=== PATIENT | male | born 1990 | race Caucasian/White ===

== ENCOUNTER 2021-05-05 13:31 | Observation (INO) | payer BC ==
[~2021-05-05] VITALS: Ht 180.3 cm; Wt 70.0 kg
--- NOTE | 2021-05-05 13:31 | NUR ---
PATIENT TO ROOM VIA WHEELCHAIR AND PHYSICIAN NOTIFIED OF PATIENT STATUS
--- NOTE | 2021-05-05 14:20 | NUR ---
PATIENT HAS DECREASED VOMITING. PATIENT RESTING AWAITNG LAB RESULT. MD NOTIFIED OF PATIENT STATUS
[2021-05-05 14:23] LABS: HEMATOCRIT 42.4 % (39.0-50.0); HEMOGLOBIN 14.9 g/dl (14.0-18.0); IMMATURE GRANULOCYTES 0.7 % (0.0-5.0); MEAN CELL VOLUME 89.5 fL CALC (80.0-100.0); MEAN CORPUSCULAR HGB 31.4 pG CALC (26.0-32.0); MEAN CORPUSCULAR HGB CONC 35.1 g/dL CAL (32.0-36.0); NEUT# 12.15 thou/uL (1.82-7.42); RED BLOOD COUNT 4.74 mill/uL (4.70-6.10); RED CELL DISTRI WIDTH 11.5 % (11.5-15.5)
[2021-05-05 14:31] LABS: ALBUMIN 4.9 g/dL (3.2-5.0); ALKALINE PHOSPHATASE 89 u/l (38-126); ANION GAP 15 (6-22 (CALC)); BILIRUBIN, TOTAL 0.9 mg/dL (0.0-1.4); BUN 18 mg/dL (9-20); BUN/CREATININE RATIO 13 (12-20 (CALC)); CARBON DIOXIDE 29 mmol/l (22-30); CHLORIDE 94 mmol/l (95-108); CREATININE 1.4 mg/dL (0.7-1.3); GFR 59 ML/MIN (>=60 (CALC)); GFR FOR AFR.AMER. > 60 ML/MIN (>=60 (CALC)); POTASSIUM 4.2 mmol/l (3.5-5.1); SGOT/AST 29 u/l (17-59); SODIUM 134 mmol/l (137-146); TOTAL PROTEIN 8.6 g/dL (6.3-8.2)
--- NOTE | 2021-05-05 15:10 | NUR ---
REPORT GIVEN TO RHONDA CYNDY
--- NOTE | 2021-05-05 16:09 | NUR ---
CHARGE NURSE SPEAKING WITH PTS MOTHER, PT GAVE VERBAL CONSENT.
--- NOTE | 2021-05-05 17:05 | NUR ---
NOW AT BEDSIDE. IV FLUIDS CONTINUING TO INFUSE WITHOUT DIFFICULTY.
[2021-05-05 17:13] LABS: URINE BILIRUBIN - DIPSTICK NEGATIVE (NEGATIVE); URINE BLOOD DIPSTICK SMALL (NEGATIVE); URINE COLOR YELLOW; URINE GLUCOSE - DIPSTICK >=1000 mg/dL (NEGATIVE); URINE KETONE NEGATIVE (NEGATIVE); URINE LEUK ESTERASE NEGATIVE (NEGATIVE); URINE PH 6.5 (4.5-8.0); URINE PROTEIN - DIPSTICK TRACE mg/dL (NEG-TRACE); URINE UROBILINOGEN - DIPSTICK 0.2 E.U./dL (0.2)
[2021-05-05 17:20] LABS: URINE NITRITE - DIPSTICK NEGATIVE (Negative); URINE WBC 0-2 WBC/hpf (0-5)
--- NOTE | 2021-05-05 17:30 | NUR ---
AT BEDSIDE WITH MD DISCUSSING PLAN OF CARE.
--- NOTE | 2021-05-05 18:26 | NUR ---
PT PENDING ADMISSION, MEDICATED, VOMITING IMPROVED AT THIS TIME. PT DENIES ANY CURRENT PAIN.
--- NOTE | 2021-05-05 19:03 | NUR ---
[facility]
[2021-05-05 19:20] VITALS: BP 91/58
--- NOTE | 2021-05-05 19:20 | NUR ---
PT ARRIVED TO MED SURG UNIT, APPEARS TO BE IN STABLE CONDITION AT THIS TIME. PT SELF AMBULATED TO THE BED FROM THE STRETCHER. PT DENIES NAUSEA AT THIS TIME. EMESIS BAG PROVIDED FOR PRECAUTIONARY MEASURES. ASSESSEMENT COMPLETED AT THIS TIME AND V/S ASSESSED. PT ORIENTED TO THE ROOM, LIGHTS, BED AND CALL SYSTEM. ACCU-CHECK OBTAINED ALSO AT THIS TIME, BLOOD SUGAR MEASURED @202.
--- NOTE | 2021-05-05 21:49 | NUR ---
PT WAS SLEEPING I ENTERED THE ROOM. MEDICATIONS DISCUSSED AT THIS TIME. HE REFUSED HIS INSULIN AT THIS TIME. BLOOD SUGAR 165 AT THIS TIME. DIET GINGERALE PROVIDED AND AN ENSURE. CALL LIGHT AT BEDSIDE AND PT ENCOURAGED TO CALL.
--- NOTE | 2021-05-06 02:00 | NUR ---
PT CALLED TO REPORT HIS BLOOD SUGAR IS NOW 330 PER HIS ARM GLUCOMETER AND HE ASKED FOR INSULIN. HE STATED THAT HE SHOULD HAVE TAKEN IT EARLIER WHEN OFFERED AND HE SHOULDN'T HAVE HAD AN ENSURE TO DRINK AND "I HAVE TO HAVE SOME INSULIN OR I AM GOING TO [place] [facility] TO 500." ACCU-CHECK PERFORMED ON PT, SHOWED BLOOD GLUCOSE TO BE 315, PT WAS MEDICATED WITH EARLIER DOSE AVAILABE WITH 7UN OF INSULIN PER SLIDING SCALE ORDERED.
--- NOTE | 2021-05-06 03:00 | NUR ---
V/S ASSESSED AT THIS TIME. NO S/O DISTRESS NOTED. CALL LIGHT W/IN REACH.
[2021-05-06 04:06] VITALS: BP 129/72
[2021-05-06 05:41] LABS: IMMATURE GRANULOCYTES 0.1 % (0.0-5.0); MEAN CELL VOLUME 91.4 fL CALC (80.0-100.0); MEAN CORPUSCULAR HGB 31.2 pG CALC (26.0-32.0); MEAN CORPUSCULAR HGB CONC 34.2 g/dL CAL (32.0-36.0); NEUT# 7.78 thou/uL (1.82-7.42); RED BLOOD COUNT 3.94 mill/uL (4.70-6.10); RED CELL DISTRI WIDTH 11.7 % (11.5-15.5)
[2021-05-06 05:42] LABS: HEMOGLOBIN 12.3 g/dl (14.0-18.0)
[2021-05-06 05:53] LABS: ANION GAP 9 (6-22 (CALC)); BUN 21 mg/dL (9-20); BUN/CREATININE RATIO 16 (12-20 (CALC)); CARBON DIOXIDE 31 mmol/l (22-30); CHLORIDE 99 mmol/l (95-108); CREATININE 1.3 mg/dL (0.7-1.3); GFR > 60 ML/MIN (>=60 (CALC)); GFR FOR AFR.AMER. > 60 ML/MIN (>=60 (CALC)); POTASSIUM 3.9 mmol/l (3.5-5.1); SODIUM 135 mmol/l (137-146)
[2021-05-06 07:29] VITALS: BP 121/73
--- NOTE | 2021-05-06 07:29 | NUR ---
PT LAYING IN BED. A&O X 4. NO DISTRESS NOTED. PT DENIES ANY PAIN OR NAUSEA AT THIS TIME. CLEAR BREATH SOUNDS UPON AUSCULTATION. ACTIVE BOWEL SOUNDS X4 QUADRANTS. STRONG PEDAL PULSES BILATERALLY. #20G RAC HEALTHY AND PATENT WITH IVF INFUSING PER EMAR ORDERS. NO OTHER NEEDS AT THIS TIME. ASSESSMENT COMPLETED. DISCUSSED POC. CALL LIGHT WITHIN REACH.
--- NOTE | 2021-05-06 11:40 | NUR ---
PT RESTING IN SEMI FOWLERS POSITION;RESPIRATIONS EVEN AND UNLABORED ON RA;PT DENIES ANY CURRENT PAIN OR NEEDS;IV SITE PATENT INFUSING IVF PER ORDER;ACCUCHECK 182, PT COVERED WITH SLIDING SCALE INSULIN PER ORDER;PT DENIES ANY ADDITIONAL NEEDS AND IS ENCOURAGED TO CALL FOR ASSISTANCE IF NEEDED;CALL LIGHT IN REACH;WILL CONTINUE TO MONITOR
[2021-05-06] MEDS ORDERED: NOVOLIN R100 UNIT/1 SC (12:08)
[2021-05-06] MEDS ORDERED: LANTUS100 UNIT SC (12:09)
[2021-05-06] MEDS ORDERED: NOVOLOG100 UNIT SC (12:09)
[2021-05-06] MEDS ORDERED: PROTONIX40 M2 PO (12:10)
[2021-05-06] MEDS ORDERED: ONDANSETRON4 MG (12:10)
[2021-05-06] MEDS ORDERED: REGLAN10 MG (12:10)
--- NOTE | 2021-05-06 12:10 | NUR ---
AT BEDSIDE DISCUSSING POC WITH PT.
[2021-05-06] MEDS ORDERED: MULTI VIT PO (12:11)
--- NOTE | 2021-05-06 14:46 | NUR ---
ALL DISCHARGE INSTRUCTIONS PROVIDED AT THIS TIME;PT ENCOURAGED TO F/U WITH PCP AND DIABETIC DIET;PT DENIES ANY ADDITIONAL QUESTIONS OR NEEDS;IV SITE REMOVED WITH CATHETER INTACT;WC TO BE PROVIDED FOR D/C HOME;[facility]SE TO TRANSPORT PT HOME;WILL CONTINUE TO MONITOR
--- NOTE | 2021-05-06 14:47 | NUR ---
Discharge instructions given. Patient verbalizes understanding of same. Discharged in stable condition via Ambulatory to Home with family. All belongings sent with pt. PT TRANSPORTED TO [facility] VIA AMBULATION FOR D/C HOME, PT REFUSED WC;ALL BELONGINGS LEFT WITH PT.SP[facility]SE TO TRANSPORT PT HOME.
== END 2021-05-06 14:48 | disposition home or self-care (01) | DRG 639 ==
LOC: ED 13:31 → EDSEX 13:31 → ED 15:02 → ED-I 17:33 → ED 17:42 → MS2 17:43
PROVIDERS: Emergency Medicine; ADMIT Internal Medicine; ATTEND Internal Medicine
DX: E10.65 Type 1 diabetes mellitus with hyperglycemia (principal); E10.43 Type 1 diabetes mellitus with diabetic autonomic (poly)neuropathy; K31.84 Gastroparesis; E87.6 Hypokalemia; E87.8 Other disorders of electrolyte and fluid balance, not elsewhere classified; K21.9 Gastro-esophageal reflux disease without esophagitis; F17.290 Nicotine dependence, other tobacco product, uncomplicated; Z82.49 Family history of ischemic heart disease and other diseases of the circulatory system; Z79.4 Long term (current) use of insulin; Z20.822 Contact with and (suspected) exposure to COVID-19
CPT/HCPCS: G0378; Q9967; S0164